=== PATIENT | male | born 1960 | race Asian ===

== ENCOUNTER 2022-03-30 18:48 | Inpatient (IN) | payer MEDICAID ==
[~2022-03-30] VITALS: Ht 167.6 cm; Wt 59.9 kg
[2022-03-30 19:08] VITALS: BP_SYST 117
[2022-03-30 21:34] LABS: BASOPHILS # (AUTO) 0.3 K/uL (0.0-0.2); BASOPHILS % (AUTO) 3.6 % (0.0-2.0); EOSINOPHILS # (AUTO) 0.1 K/uL (0.0-0.4); EOSINOPHILS % (AUTO) 1.4 % (0.0-4.0); HEMATOCRIT 41.1 % (36-54); HEMOGLOBIN 13.8 g/dL (14.0-18.0); LYMPHOCYTES # (AUTO) 1.4 K/uL (1.0-5.5); LYMPHOCYTES % (AUTO) 16.1 % (20.5-51.5); MEAN CORPUSCULAR HEMOGLOBIN 30 pg (27-31); MEAN CORPUSCULAR HGB CONC 34 % (32-36); MEAN CORPUSCULAR VOLUME 89 fL (79.0-98.0); MONOCYTES # (AUTO) 0.7 K/uL (0.0-1.0); NEUTROPHILS # (AUTO) 6.4 K/uL (1.8-7.7); NEUTROPHILS % (AUTO) 70.9 % (40.0-70.0); PLATELET COUNT (AUTO) 336 K/uL (130-430); RED BLOOD CELL COUNT(AUTO) 4.64 MIL/uL (4.2-6.2); RED CELL DISTRIBUTION WIDTH 13.6 % (9.0-15.0)
[2022-03-30 21:38] LABS: ANION GAP 6 (5-15); CALCIUM 9.5 mg/dL (8.4-11.0); CHLORIDE 103 mmol/L (98-107); GLUCOSE 96 mg/dL (70-99); UREA NITROGEN, BLOOD 28 mg/dL (8-21)
[2022-03-30 21:45] LABS: GFR AFRICAN AMERICAN 126 mL/min (>90)
[2022-03-30 21:46] LABS: ALANINE AMINOTRANSFERASE 34 U/L (12-78); ALBUMIN 3.5 g/dL (3.4-4.8); ASPARTATE AMINOTRANSFERASE 27 U/L (10-37); TOTAL BILIRUBIN 0.3 mg/dL (0.0-1.0)
[2022-03-31] MEDS ORDERED: NACL 0.9% 2,000 ML IV ONE (01:00)
[2022-03-31] MEDS ORDERED: VANCOMYCIN HCL 1,000 MG in NS 250 ML IV ONE (01:00)
[2022-03-31] MEDS ORDERED: AZITHROMYCIN 500 MG in NS 250 ML IV ONE (01:00)
[2022-03-31] MEDS ORDERED: PIPERACILLIN/TAZO 3.375 GM in NS 50 ML IV ONE (01:00)
[2022-03-31] MEDS ORDERED: PIPERACILLIN/TAZOBACTAM 3.375 GM/VIAL (ZOSYN) IV ONE (01:31)
[2022-03-31] MEDS ORDERED: AZITHROMYCIN 500 MG/VIAL (ZITHROMAX) IV ONE (04:03)
[2022-03-31] MEDS ORDERED: VANCOMYCIN HCL 1000 MG/VIAL IV ONE (04:31)
[2022-03-31] MEDS ORDERED: IPRATROPIUM/ALBUTEROL SULFATE 3 ML AMPUL.NEB (DUONEB) INH PRN (10:45)
[2022-03-31 10:46] VITALS: BP_SYST 110
[2022-03-31] MEDS ORDERED: cloNIDine HCL 0.1 MG TABLET GT PRN (11:15)
[2022-03-31] MEDS ORDERED: ACETAMINOPHEN 650 MG/20.3 ML UDC GT PRN (11:30)
[2022-03-31] MEDS: LR 1,000 ML IV SCH (11:30)
[2022-03-31] MEDS: PIPERACILLIN/TAZO 3.375/DEX-IS 50 ML IV SCH ×3 (12:00→23:51)
[2022-03-31 14:30] VITALS: BP_SYST 123
[2022-03-31] MEDS: IPRATROPIUM/ALBUTEROL SULFATE 3 ML AMPUL.NEB (DUONEB) INH SCH ×3 (15:48→23:24)
[2022-03-31 16:35] VITALS: BP_SYST 116
[2022-03-31] MEDS: AZITHROMYCIN 500 MG in NS 250 ML IV SCH (18:18)
[2022-03-31 20:00] VITALS: BP_SYST 103
[2022-04-01 02:07] VITALS: BP_SYST 108
[2022-04-01] MEDS: IPRATROPIUM/ALBUTEROL SULFATE 3 ML AMPUL.NEB (DUONEB) INH SCH ×6 (04:01→23:00)
[2022-04-01] MEDS: PIPERACILLIN/TAZO 3.375/DEX-IS 50 ML IV SCH ×3 (06:06→18:05)
[2022-04-01] MEDS: LR 1,000 ML IV SCH ×2 (06:07→20:31)
[2022-04-01 07:05] LABS: BASOPHILS % (AUTO) 0.3 % (0.0-2.0); EOSINOPHILS # (AUTO) 0.1 K/uL (0.0-0.4); EOSINOPHILS % (AUTO) 2.6 % (0.0-4.0); HEMATOCRIT 33.5 % (36-54); HEMOGLOBIN 11.4 g/dL (14.0-18.0); LYMPHOCYTES # (AUTO) 0.8 K/uL (1.0-5.5); LYMPHOCYTES % (AUTO) 20.3 % (20.5-51.5); MEAN CORPUSCULAR HEMOGLOBIN 30 pg (27-31); MEAN CORPUSCULAR HGB CONC 34 % (32-36); MEAN CORPUSCULAR VOLUME 88 fL (79.0-98.0); MONOCYTES # (AUTO) 0.4 K/uL (0.0-1.0); MONOCYTES % (AUTO) 9.7 % (1.7-9.3); NEUTROPHILS # (AUTO) 2.8 K/uL (1.8-7.7); NEUTROPHILS % (AUTO) 67.1 % (40.0-70.0); PLATELET COUNT (AUTO) 282 K/uL (130-430); RED BLOOD CELL COUNT(AUTO) 3.81 MIL/uL (4.2-6.2); RED CELL DISTRIBUTION WIDTH 13.7 % (9.0-15.0); WHITE BLOOD COUNT (AUTO) 4.1 K/uL (4.8-10.8)
[2022-04-01 07:22] LABS: CALCIUM 8.2 mg/dL (8.4-11.0); CREATININE 0.73 mg/dL (0.55-1.30)
[2022-04-01 07:54] VITALS: BP_SYST 113
[2022-04-01] MEDS ORDERED: [UNRECOGNIZED DRUG - CODE] GT (10:20)
[2022-04-01] MEDS ORDERED: LANS30CA53 GT (10:20)
[2022-04-01] MEDS ORDERED: MELA1LIQ GT (10:20)
[2022-04-01] MEDS ORDERED: ASCO500T20 GT (10:20)
[2022-04-01] MEDS ORDERED: MOM GT (10:20)
[2022-04-01] MEDS ORDERED: METO25TA6 GT (10:20)
[2022-04-01] MEDS ORDERED: MULT-1089 GT (10:20)
[2022-04-01] MEDS ORDERED: ZINC220T4 GT (10:20)
[2022-04-01 12:07] VITALS: BP_SYST 112
[2022-04-01 16:19] VITALS: BP_SYST 111
[2022-04-01] MEDS ORDERED: MILK OF MAGNESIA 30 ML UDC GT PRN (16:30)
[2022-04-01] MEDS: AZITHROMYCIN 500 MG in NS 250 ML IV SCH (17:06)
[2022-04-01] MEDS ORDERED: LANSOPRAZOLE 30 MG CAPSULE.DR GT ONE (17:30)
[2022-04-01] MEDS ORDERED: ASCORBIC ACID 500 MG TABLET GT ONE (17:30)
[2022-04-01] MEDS ORDERED: MULTIVITAMINS TAB 1 TABLET GT ONE (17:30)
[2022-04-01 20:00] VITALS: BP_SYST 115
[2022-04-01] MEDS: LevETIRAcetam 500 MG/5 ML UDC ORAL LIQUID GT SCH (20:30)
[2022-04-01] MEDS: MELATONIN 3 MG TABLET GT SCH (20:30)
[2022-04-01] MEDS: METOPROLOL TARTRATE 25 MG TABLET GT SCH (20:31)
[2022-04-02] VITALS (7 sets, daily range): BP systolic 99–114
[2022-04-02] MEDS: IPRATROPIUM/ALBUTEROL SULFATE 3 ML AMPUL.NEB (DUONEB) INH SCH ×6 (03:00→23:15)
[2022-04-02] MEDS: PIPERACILLIN/TAZO 3.375/DEX-IS 50 ML IV SCH ×4 (06:14→17:01)
[2022-04-02] MEDS: LANSOPRAZOLE 30 MG CAPSULE.DR GT SCH (09:48)
[2022-04-02] MEDS: MULTIVITAMINS TAB 1 TABLET GT SCH (09:48)
[2022-04-02] MEDS: ASCORBIC ACID 500 MG TABLET GT SCH (09:48)
[2022-04-02] MEDS: METOPROLOL TARTRATE 25 MG TABLET GT SCH ×2 (09:49→22:08)
[2022-04-02] MEDS: LevETIRAcetam 500 MG/5 ML UDC ORAL LIQUID GT SCH ×2 (09:49→22:07)
[2022-04-02] MEDS: LR 1,000 ML IV SCH (12:31)
[2022-04-02] MEDS ORDERED: IPRA3AMP9 INH (13:26)
[2022-04-02] MEDS: AZITHROMYCIN 500 MG in NS 250 ML IV SCH (16:01)
[2022-04-02] MEDS: MELATONIN 3 MG TABLET GT SCH (22:07)
[2022-04-03] VITALS: BP_SYST 105
[2022-04-03] MEDS: PIPERACILLIN/TAZO 3.375/DEX-IS 50 ML IV SCH ×4 (00:12→17:41)
[2022-04-03] MEDS: IPRATROPIUM/ALBUTEROL SULFATE 3 ML AMPUL.NEB (DUONEB) INH SCH ×4 (03:49→16:19)
[2022-04-03 08:05] VITALS: BP_SYST 102
[2022-04-03] MEDS: METOPROLOL TARTRATE 25 MG TABLET GT SCH (09:06)
[2022-04-03] MEDS: LevETIRAcetam 500 MG/5 ML UDC ORAL LIQUID GT SCH (09:07)
[2022-04-03] MEDS: LANSOPRAZOLE 30 MG CAPSULE.DR GT SCH (09:07)
[2022-04-03] MEDS: MULTIVITAMINS TAB 1 TABLET GT SCH (09:07)
[2022-04-03] MEDS: ASCORBIC ACID 500 MG TABLET GT SCH (09:07)
[2022-04-03] MEDS: LR 1,000 ML IV SCH (09:09)
[2022-04-03 10:37] VITALS: BP_SYST 102
[2022-04-03 12:05] VITALS: BP_SYST 113
[2022-04-03 16:00] VITALS: BP_SYST 109
[2022-04-03] MEDS: AZITHROMYCIN 500 MG in NS 250 ML IV SCH (16:19)
== END 2022-04-03 18:25 | DRG 133 ==
LOC: SED 18:48 → STU 03-31 03:52
PROVIDERS: ADMIT Internal Medicine; ATTEND Internal Medicine
DX: J96.01 Acute respiratory failure with hypoxia (principal); J69.0 Pneumonitis due to inhalation of food and vomit; G81.91 Hemiplegia, unspecified affecting right dominant side; R13.10 Dysphagia, unspecified; Z20.822 Contact with and (suspected) exposure to COVID-19; I10 Essential (primary) hypertension; Z93.1 Gastrostomy status
CPT/HCPCS: 36415; 36600; 71045; 71275; 76376; 80048; 80053; 82803-TC; 83605; 83880; 84484; 85025; 87040; 87081; 92610-GN; 93005; 94640; 94760; 96365; 96366; 96368; 97530-GP; 99285; G0378; J0456; J2543; J3370; J7050; J7120; Q9967